=== PATIENT | male | born 2000 | race Caucasian/White ===

== ENCOUNTER 2021-03-30 15:03 | Emergency (ER) | payer OTHER, SELFPAY ==
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
[2021-03-30 15:11] VITALS: BP 126/88; BP 128/84; PULSE 92; PULSE 98; RESP 18; TEMP 36.8; O2SAT 98; O2SAT 99; BMI 34.0
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
--- NOTE | 2021-03-30 16:34 | PC.NURSE ---
Pt is sitting up in bed alert and in no distress. Visitor at bedside talking with patient
[2021-03-30 17:46] LABS: Amphetamine Screen Urine Not Detected (Not Detect); Barbiturates, Urine Not Detected (Not Detect); Benzodiazepines Screen Urine Not Detected (Not Detect); Cannabinoid Screen Urine POSITIVE (Not Detect); Cocaine Screen Urine Not Detected (Not Detect); Opiate Screen Urine Not Detected (Not Detect); Phencyclidine Screen Urine Not Detected (Not Detect)
== END 2021-03-30 17:23 | disposition home or self-care (01) ==
PROVIDERS: Physician Assistant; Emergency Provider Emergency Medicine; PCP Pediatrics
DX: S06.0X0A Concussion without loss of consciousness, initial encounter (principal); V47.5XXA Car driver injured in collision with fixed or stationary object in traffic accident, initial encounter; Y93.89 Activity, other specified; Y92.414 Local residential or business street as the place of occurrence of the external cause; Y99.9 Unspecified external cause status
CPT/HCPCS: 70450; 80307; 99284